=== PATIENT | male | born 1960 | race Caucasian/White ===

== ENCOUNTER 2023-11-27 15:55 | Inpatient (IN) | payer BC, SELFPAY ==
[2023-11-27] VITALS (9 sets, daily range): BP systolic 132–157; BP diastolic 77–126; BMI 30.4; BMI 28.4; BMI 28.3
[2023-11-27 14:10] LABS: % Basophils 0.6 % (0-2); % Eosinophils 0.6 % (0-6); % Immature Granulocytes 0.3 % (0-0.5); % Lymphocytes 20.6 % (20.5-51.1); % Monocytes 6.3 % (1.7-9.3); % Neutrophils 71.6 % (42.2-75.2); Absolute Basophils 0.1 10^3/uL (0-0.2); Absolute Eosinophils 0.1 10^3/uL (0-0.7); Absolute Lymphocytes 2.4 10^3/uL (1.2-3.4); Absolute Monocytes 0.7 10^3/uL (0.1-0.6); Absolute Neutrophils 8.2 10^3/uL (1.4-6.5); Hematocrit 44.6 % (39.0-52.0); Hemoglobin 15.2 g/dL (13.0-18.0); Mean Corp Hgb Conc. 34.1 g/dL (33.0-37.0); Mean Corpuscular Hgb 28.3 pg (27.0-31.0); Mean Corpuscular Volume 82.9 fL (80.0-94.0); Mean Platelet Volume 11.8 fL (7.4-10.4); Nucleated Red Blood Cells % 0 % (-); Platelet Count 251 10^3/uL (130-400); Red Blood Cell Count 5.38 10^6/uL (4.70-6.10); Red Cell Dist. Width 12.4 % (11.5-14.5); White Blood Cell Count 11.5 10^3/uL (4.8-10.8)
[2023-11-27 14:23] LABS: ALT (SGPT) 47 U/L (0-50); AST (SGOT) 39 U/L (17-59); Albumin 4.8 g/dl (3.5-5.0); Alkaline Phosphatase 55 U/L (38-126); Blood Urea Nitrogen 23 mg/dl (9-20); Carbon Dioxide 27 mmol/L (22-30); Chloride 103 mmol/L (98-107); Glucose 122 mg/dl (70-99); Potassium 4.6 mmol/L (3.5-5.1); Sodium 135 mmol/L (135-145); Total Bilirubin 1.8 mg/dl (0.2-1.3); Total Protein 7.3 g/dl (6.3-8.2); eGFR > 60.00
--- NOTE | 2023-11-27 15:15 | ED.GENMED ---
History of Present Illness
General
Chief Complaint: Cardiac Symptoms
Source: patient
Exam Limitations: none
Time Seen by Provider: 11/27/23 14:55
Travel History
Have you had any contact with someone who has COVID-19?: No
Do you have any symptoms of coronavirus? Fever > 100 degrees, chills, cough, shortness of breath, sore throat, loss of taste or smell, muscle aches, or headache?: No
History of Present Illness
History of Present Illness:
See MDM
Past History
Past History
ED Past Medical History: Arrthythmia (A fibrillation) and HTN
ED Past Surgical History: Other (RADHA with cardioversion)
Social History
Tobacco: Former smoker
Alcohol: Occasional
Personal:
Living: other (Significant other)
Employment: Employed
Family History
Family History: Other (Father with an VT and cerebral hemorrhage)
Phy Exam
Physical Exam
Physical Exam:
See MDM
Course
Orders/Labs/Results
Orders:
Orders
11/27/23 13:52
EKG [Electrocardiogram (*1)] Urgent
Reason for Study: Atrial Fibrillation
EKG- Treatment ONCE
11/27/23 14:03
Complete Blood Count/With Diff Urgent
Comprehensive Metabolic Panel Urgent
Troponin I Urgent
11/27/23 15:09
Aspirin Chewable [Low Strength Aspirin] 243 mg PO NOW STA
11/27/23 15:10
Heparin 4,000 units IV NOW STA
Pharmacy Request to Place See Dose Instructions PO NOW STA
Discontinue all Active Warfarin orders?: Yes
11/27/23 15:11
PTT Urgent
Comment: Obtain baseline before beginning heparin infusion if not already collected
Nursing to Place Non Medication Order As Directed
Physician Order: PTT 6 hours after initial start of Heparin infusion
11/27/23 15:13
Consult Cardiology [CARDIOLOGY CONSULT] Routine
Consulting Provider: Burke Arnold
Was physician already notified: Yes
11/27/23 15:15
Heparin 71269 Units/250 ml 25,000 units in 250 ml IV PER PROTOCOL
Weight to be used for heparin protocol in kilograms (kg):: 76.5
Protocol:: Cardiac Tx/Acute Coronary
PTT Goal Range to be used:: PTT 73 to 111 seconds
Order type:: Initial
INITIAL Infusion Dose (UNITS/KG/hr) & then follow protocol:: 15 units/kg/hr
Infusion Dose in UNITS/hr & then follow protocol (UNITS/hr):: 1,150
INFUSION RATE in mL/hr & then follow protocol (mL/hr):: 11.5
PTT less than or equal to 64 seconds:: Increase rate by 200 units/hr (+ 2 mL/hr)
PTT 64.1 to 72.9 seconds:: Increase rate by 100 units/hr (+ 1 mL/hr)
PTT 73 to 111 seconds:: Target Range. No change in rate.
PTT 111.1 to 130.9 seconds:: Decrease rate by 100 units/hr (- 1 mL/hr)
PTT 131 to 199.9 seconds:: HOLD for 1 hr. Then decrease rate by 200 units/hr (- 2 mL/hr)
PTT greater than or equal to 200 seconds:: HOLD for 2 hrs & Notify Provider. Then decrease by 200 units/hr (-
2 mL/hr)
Lab follow-up:: Each change, PTT q6h until 2 consecutive are therapeutic. Then PTT
daily.
11/27/23 16:[address] See Dose Instructions IV DIRECTED
Abnormal Lab Results
11/27/23
14:03
WBC 11.5 H 10^3/uL
(4.8-10.8)
MPV 11.8 H fL
(7.4-10.4)
Absolute Neuts (auto) 8.2 H 10^3/uL
(1.4-6.5)
Absolute Monos (auto) 0.7 H 10^3/uL
(0.1-0.6)
BUN 23 H mg/dl
(9-20)
Glucose 122 H mg/dl
(70-99)
Total Bilirubin 1.8 H mg/dl
(0.2-1.3)
Troponin I 0.040 H* ng/ml
11/27/23 14:03
11/27/23 14:03
Vital Signs
Initial and Last Documented VS:
Initial Vital Signs
Temp Pulse Resp BP Pulse Ox
98.1 F 74 20 146/89 95
11/27/23 13:56 11/27/23 13:56 11/27/23 13:56 11/27/23 13:56 11/27/23 13:56
Last Documented Vital Signs
Temp Pulse Resp BP Pulse Ox
97.5 F 74 16 157/126 98
11/27/23 15:04 11/27/23 15:04 11/27/23 15:04 11/27/23 15:04 11/27/23 15:04
MDM/Problems Addressed
Differential Diagnosis Includes:
HPI and MDM Narrative:
63-year-old male presenting with exertional dyspnea. Patient was playing basketball today and felt winded and felt off. Patient has a history of paroxysmal A-fib. He was unsure if this was A-fib or not. He follows with cardiology Dr. Winston. He
took his baby aspirin earlier today. Blood work was performed in triage. His back to the emergency department room. At this time, his blood work came back and his troponin is elevated at 0.04. EKG is nonischemic. Patient remains symptom-free at
rest
Case discussed with cardiology. Will start heparin drip and admit
Physical exam
General: Well appearing and non-toxic
HEENT: protecting airway
Neck: appears supple
CV: No evidence of cyanosis. Regular rate and rhythm
Resp: No accessory muscle use
Abd: Non-distended
Extremities: No deformities
Neuro: alert
Psych: Normal affect
Skin: Intact
Problems Addressed including Acute and Chronic Conditions affecting care:
1. Exertional dyspnea
Acuity: acute
Prognosis: unstable
Details: Given the elevated troponin, there is concern for ACS equivalent. Patient is high risk with prior history of smoking, high cholesterol and family history of heart disease.
Updates
Given the exertional dyspnea and the elevated troponin, will start heparin drip with concern for acute coronary syndrome
Differential Diagnosis (but not limited to):
Testing considered:
Drug therapy (if applicable): OTC meds, please see d/c instruction regarding Rx drugs
Amount and/or Complexity of Data Reviewed
Clinical info obtained from: Patient
External data reviewed: N/A
Labs I independently reviewed (but not limited to): Elevated troponin
Radiology: N/A
Pulse Ox: not hypoxic
EKG independently reviewed: Sinus rhythm, normal axis, no STEMI
Manager Mission: Sinus rhythm
Critical Care: The high probability of a clinically significant, sudden or life threatening deterioration of the cardiovascular system(s) required my full and direct attention, intervention and personal management. The aggregate critical care time
was 31 minutes. This time is in addition to time spent performing reported procedures but includes the following:
[x] Data Review and interpretation
[x] Patient assessment and monitoring of vital signs
[x] Documentation
[x] Medication orders and management
Risk of Complication:
Social Determinants of health: Good social support
Discussed with other providers: cardiology, hospitalist
Escalation of Care includes Admit/Obs: Given the concern for ACS, heparin drip started and will admit
Occasional wrong word or 'sound a like' substitutions may have occurred due to the inherent limitations of voice recognition software. Read the chart carefully and recognize, using context, where substitutions have occurred.
*Critical Care Note
Total Time (30-74mins, 75-104mins- exclusive of procedures): 31 min
ED Attending Note
-
Portions of this chart may have been created with voice recognition software.� Occasional wrong word or��sound alike� substitutions may have occurred due to the inherent limitations of voice recognition software.
Discharge Plan
Departure
Patient Disposition: Admit
Date of Disposition: 11/27/23
Time of Disposition: 15:16
Admit to: Telemetry
Presentation/result/management discussed w/ accepting MD/DO: Hospitalist
Discharge Problem:
ACS (acute coronary syndrome)
Prescriptions:
No Action
ascorbate calcium (vitamin C) [Liliam-C] 500 MG tablet
500 mg PO DAILY
omega-3 fatty acids-fish oil 1 EACH capsule
2 ea PO DAILY
Interventions
Interventions:
*Risk Screen - Suicide Last Done: 11/27/23 14:59
*General Assessment Last Done: 11/27/23 14:59
*Neglect/Abuse Screening Last Done: 11/27/23 14:59
ED- Fall Risk Assessment Last Done: 11/27/23 14:59
*ED COVID-19 Vaccine History Last Done: 11/27/23 13:56
ED- Pulmonary Assessment Last Done: 11/27/23 14:59
ED- Cardiac Assessment Last Done: 11/27/23 14:59
Discharge Date and Time
Print Language: ITALIAN
--- NOTE | 2023-11-27 15:57 | HPS.HSE ---
Family Physician
-
Family Physician: Zi Bains
Chief Complaint
-
Dyspnea on exertion
History of Present Illness
This is a 63-year-old male who has a past medical history significant for hyperlipidemia, hypertension, proximal atrial fibrillation not on anticoagulation presenting with dyspnea on exertion during exercise and persistent elevated heart rate.
Patient reports being in usual state of health up until playing basketball today. He felt particularly dyspneic running up and down the basketball court.
Afterwards patient continued to have some dyspnea and felt some palpitations. He thought he was in atrial fibrillation and checked his heart rate via the monitor which showed that he was not in atrial fibrillation but his heart rate was elevated
compared to his baseline. He will out of breath doing his chores such as mowing the lawn. He denies any nausea vomiting or diaphoresis. He denied feeling dizzy or lightheaded.
Patient was previously evaluated for CAD in July with a stress test that was negative for motion abnormalities. 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 He denies
prior history of exertional chest pain. He does have a history with father with NM in his 50s.
On arrival in the ED the patient is a 3150 systolic, he was otherwise hemodynamically stable and in no acute distress and free of chest pain. ECG showed normal sinus and it was unchanged from prior history�troponin 0.04. CBC was unremarkable.
Chemistries were all within normal limits. Case discussed with cardiology per ED recommending tx for ACS.
Medical History
Past Medical History
Past Medical History: Reports Arrhythmia (paroxysmal atrial fibrillation), HTN and Hypercholesterolemia
Past Surgical History: Reports None
Social History
Tobacco: Non-smoker
Alcohol: Occasional
Drug: None
Personal:
Living: With Family
Employment: Employed
Family History
Family History: CAD (father with NM in his 50s)
Allergies / Home Medications
Allergies reflects when Allergies were last updated in [employer].
Home Medications with original date entered in [facility]
Allergy/Medication List:
Allergies
Allergy/AdvReac Type Severity Reaction Status Date / Time
No Known Allergies Allergy Verified 11/27/23 13:57
Home Medications
Bladder Health Supplement 3 cap PO DAILY 11/27/23
Nettle Root Extract Liquid 1 dose PO DAILY 11/27/23
aspirin 81 mg tablet,delayed release 81 mg PO DAILY 11/27/23
coenzyme Q10 100 mg capsule (CoQ-10) 100 mg PO DAILY 11/27/23
hydrochlorothiazide 25 mg tablet 25 mg PO DAILY 11/27/23
polyvinyl alcohol 1.4 % eye drops 1 drp BOTH EYES DAILYPRN PRN dry eyes 11/27/23
rosuvastatin 10 mg tablet 10 mg PO HS 11/27/23
sildenafil 100 mg tablet 100 mg PO DAILY PRN ED 11/27/23
valsartan 320 mg tablet 320 mg PO DAILY 11/27/23
Review of Systems
-
History Source: Patient
Constitutional: Reports No Symptoms
EENT: Reports No Symptoms
Respiratory: Reports No Symptoms
Cardiac: Reports Chest Pain (dyspnea on exertion)
Abdomen/GI: Reports No Symptoms
: Reports No Symptoms
Musculoskeletal: Reports No Symptoms
Skin: Reports No Symptoms
Neurological: Reports No Symptoms
Endocrine: Reports No Symptoms
Hematologic/Lymphatic: Reports No Symptoms
Psych: Reports No Symptoms
Physical Exam
Vital Signs
Vital Signs
Temp Pulse Resp BP Pulse Ox
97.5 F 74 16 157/126 98
11/27/23 15:04 11/27/23 15:04 11/27/23 15:04 11/27/23 15:04 11/27/23 15:04
Physical Exam
General: Well Developed, Well Nourished, No Apparent Distress, Comfortable and Conversant
HEENT: NormoCephalic, Anicteric, Moist mucous membranes, Atraumatic and PERRLA
Respiratory: Clear
Cardiac: S1/S2 and Regular Rhythm
Breast: Deferred by me
GI: Soft, Non Tender, Non Distended and Normal Bowel Sounds
Rectal: Deferred by Provider
Genito-urinary: Deferred by me
Musculoskeletal: No Clubbing, No Cyanosis and No Edema
Skin: Warm and Dry
Neuro: AO x 3
Hematologic/Lymphatic: No Lymphadenopathy
Psych: Calm
Laboratory Results
-
11/27/23 14:03
11/27/23 14:03
Laboratory Results
Total Bilirubin 1.8 mg/dl (0.2-1.3) H 11/27/23 14:03
AST 39 U/L (17-59) 11/27/23 14:03
ALT 47 U/L (0-50) 11/27/23 14:
Alkaline Phosphatase 55 U/L (38-126) 11/27/23 14:03
Troponin I 0.040 ng/ml H* 11/27/23 14:03
Data Reviewed
-
Medical Tests (Nuc Med, Echo, EKG etc): Image Personally Visualized and interpreted
Lab Data: Labs Reviewed by me
Old Records: Reviewed
Impression/Plan
-
IMPRESSION:
PLAN:
Chest pain - RUSH, history of possible ischemia on excercise ecg, family hx of ecg, elevated troponin suggests cardiac ischemia. Oxygenation is at baseline and has no pulmonary symptoms. Normal sinus ryhthm in the 60s. Will admit and treat for
ACS. No h/o drug use.
- admit to telemetry
- aspirin 243 given in ED, continue 81 daily
- start heparin gtt, continue rosuvastin
- plan for possible cath in am, npo after midnight
- lipid panel and a1c
pAfib - Currently rate controlled. Was on aspirin 81 and not anticoagulated.
- on heparin for acs now
- continue aspirin
- rate spontanously controlled
HTN
- continue valsartan and hctz
DVT - on heparin gtt
Code status - Full Code
[2023-11-27] MEDS: LOW STRENGTH ASPIRIN 243 MG PO (15:58)
[2023-11-27] MEDS: HEPARIN 4000 UNITS IV (15:58)
[2023-11-27] MEDS: HEPARIN 25000 UNITS/250 ML IV (16:04)
[2023-11-27 16:19] LABS: APTT 27.4 Sec (23.4-35.0)
--- NOTE | 2023-11-27 17:33 | W.PN.CD ---
Today's Communication / Plan
-
.
Impression / Plan
-
Impression:63M with paroxysmal AF, dyslipidemia, HTN, CAC 426 admitted with exertional dyspnea & chest pain. EKG unremarkable (maybe subtle ST depressions laterally) and first troponin 0.04. Symptoms resolved with rest and haven't recurred
Plan:
CP/Dyspnea - he thought it was due to AF/RVR, although does agree that very mild chest pain is new. Also, no AF/RVR when he got home. Suspect this is ACS or AF that resolved spontaneously.
- treat as ACS -> ASA/UFH and statin. Serial troponins and EKG. I will leave NPO for possible LHC in AM
- Possible AF -> telemetry
PAF
- Rate: Fine in NSR
- Rhythm: no drugs
- Oral Anticoagulation: 1 for HTN (2 if you count CAC as vascular disease). No AC yet
Hypertension -meds
Dyslipidemia - statin and check lipid panel
Nephrolithiasis
Subjective: Dictated
Data
CAC 2022: TOTAL CORONARY ARTERY CALCIUM AGATSTON SCORE: 426.24. LEFT MAIN: 71.11 LAD: 214.77 LEFT CIRCUMFLEX: 0 RCA: 140.36
SACHA Jul 2023: 11:[address] depressions inferiorly, resolved 3 minutes into recovery BUT no echo changes
Physical Exam
Vital Signs/Labs
Vital Signs
Temp Pulse Resp BP Pulse Ox
36.4 C 58 16 136/88 98
11/27/23 15:04 11/27/23 16:30 11/27/23 16:30 11/27/23 16:00 11/27/23 15:04
11/26/23 11/27/23 11/28/23
06:59 06:59 06:59
Actual Weight 200 lb
11/27/23 14:03
11/27/23 14:03
APTT 27.4 Sec (23.4-35.0) 11/27/23 15:57
LAB Results
11/27/23
14:03
Troponin I 0.040 H*
Data Reviewed
-
Date of Service: November 27, 2023
[2023-11-27 18:26] LABS: Troponin I 0.049 ng/ml
[2023-11-27 21:23] LABS: Troponin I 0.052 ng/ml
[2023-11-27] MEDS: CRESTOR 10 MG PO (21:47)
[2023-11-28] VITALS (10 sets, daily range): BP systolic 129–145; BP diastolic 67–88
[2023-11-28 00:18] LABS: APTT 103.5 Sec (23.4-35.0); Troponin I 0.052 ng/ml
--- NOTE | 2023-11-28 06:30 | W.PN.HOSP.TC ---
Today's Communication/Plan
-
Discharge
Assessment / Plan
Assessment / Plan
Physical Exam
General: Well Developed, Well Nourished, No Apparent Distress, Comfortable and Conversant
HEENT: NormoCephalic, Anicteric, Moist mucous membranes, Atraumatic and PERRLA
Respiratory: Clear
Cardiac: S1/S2 and Regular Rhythm
GI: Soft, Non Tender, Non Distended and Normal Bowel Sounds
Musculoskeletal: No Clubbing, No Cyanosis and No Edema, Right wrist dressing clean dry intact
Skin: Warm and Dry
Neuro: AO x 3
Psych: Calm
63M HTN HLD pAfib here for chest pain exertional dyspnea concerning for ACS
Chest pain - RUSH, history of possible ischemia on excercise ecg, family hx of ecg, elevated troponin suggests cardiac ischemia. Oxygenation is at baseline and has no pulmonary symptoms. Normal sinus ryhthm in the 60s. Will Admitted and treat for
possible ACS. No h/o drug use.
- aspirin 243 given in ED, continue 81 daily
- empirically on heparin gtt prior to cath
-Troponin peak 0.052
-ECHO appreciated EF 65-70% no significant change from prior ECHO
Cardio eval appreciated
-Cath noted endothelial dysfunction/microvascular angina, non-obstructive coronary artery disease,
-limited weightbearing right wrist one week
-increased home statin
-HCTZ discontinued in favor of Verapamil
pAfib - Rate controlled
- continue aspirin
- CHADS2-Vasc 1 d/t htn no role anticoagulation at this time.
HTN
- continue valsartan
-HCTZ discontinued in favor of Verapamil as above
Code status - Full Code
Medically stable for discharge home with outpatient follow up recommendations.
Discussed with Cardiology, Patient and his .
Total Time Preparing Discharge ___50____ minutes including examination of the patient, summary of the hospital stay, instructions for continuing care to all relevant caregivers; and preparation of discharge records, prescriptions, and referral
forms if necessary.
Anticipated Discharge: Today
Subjective/Interval History
-
Date of Service: November 28, 2023
Seen and examined at bedside s/p cath. Symptoms (chest pain shortness of breath) resolved. Reports overall feeling well. Simon present during evaluation. Eager to go home.
Objective Data
-
Labs:
Laboratory Results
11/27/23 11/28/23 11/28/23
23:33 06:00 06:38
WBC Pending
Hgb Pending
Hct Pending
Plt Count Pending
APTT 103.5 H Pending
Sodium Pending
Potassium Pending
Chloride Pending
Carbon Dioxide Pending
BUN Pending
Creatinine Pending
Glucose Pending
Calcium Pending
Vital Signs:
Vital Signs
Temp Pulse Resp BP Pulse Ox
97.5 F 50 16 140/81 97
11/28/23 03:30 11/28/23 03:30 11/28/23 03:30 11/28/23 03:30 11/28/23 03:30
I&O
11/26/23 11/27/23 11/28/23
06:59 06:59 06:59
Intake Total 480 / 480
Balance 480 / 480
[2023-11-28 07:21] LABS: Hematocrit 47.1 % (39.0-52.0); Hemoglobin 15.4 g/dL (13.0-18.0); Mean Corp Hgb Conc. 32.7 g/dL (33.0-37.0); Mean Corpuscular Hgb 28.5 pg (27.0-31.0); Mean Corpuscular Volume 87.1 fL (80.0-94.0); Mean Platelet Volume 11.7 fL (7.4-10.4); Platelet Count 216 10^3/uL (130-400); Red Blood Cell Count 5.41 10^6/uL (4.70-6.10); Red Cell Dist. Width 12.6 % (11.5-14.5); White Blood Cell Count 8.2 10^3/uL (4.8-10.8)
[2023-11-28 07:46] LABS: APTT 108.3 Sec (23.4-35.0)
--- NOTE | 2023-11-28 07:48 | W.PN.CD ---
Today's Communication / Plan
-
Increase rosuvastatin to 20 mg daily.
LHC today.
Impression / Plan
-
Impression/Plan:63M with paroxysmal AF, dyslipidemia, HTN, CAC 426 admitted with exertional dyspnea & chest pain, nonspecific EKG changes unremarkable (maybe subtle ST depressions laterally) and first troponin 0.04. Symptoms resolved with rest and
haven't recurred
#CP/Dyspnea
-Acute, resolved.
-Troponin trend = 0.040 --> 0.049 --> 0.052 --> 0.052.
-Elevated calcium score implies the presence of ASCVD.
-Maintain aspirin, heparin. Increase rosuvastatin to 20 mg daily.
-Coronary angiography today.
#PAF
-Currently in NSR.
-Bradycardia prevents the use of beta rah/CCA.
-CHADS2-Vasc = 1 (HTN).
-No role for vermin exterminator therapeutic anticoagulation at this time. Currently on heparin gtt for possible ACS.
#Hypertension
-Chronic, elevated.
-Has not received home medications in light of pending [facility].
#Dyslipidemia
-Chronic, stable.
-Increase rosuvastatin to 20 mg daily.
-Goal LDL < 55.
#Nephrolithiasis
Subjective:
No acute events.
No subjective complaints.
Data:
Stress Echo, 07/29/2023:
CONCLUSIONS
Good exercise capacity at 11 minutes (12 METS). No chest pain. Stress EKG is
positive for ischemia. 1.5 mm horizontal to downsloping ST depression in leads
II,III,AVF; resolved 2-3 minutes into recovery. DTS 3.5.
No echocardiographic evidence of myocardial ischemia.
Low/intermediate risk stress test.
CAC, 01/14/2023:
TOTAL CORONARY ARTERY CALCIUM AGATSTON SCORE: 426.24. LEFT MAIN: 71.11 LAD: 214.77 LEFT CIRCUMFLEX: 0 RCA: 140.36
Physical Exam
Vital Signs/Labs
Vital Signs
Temp Pulse Resp BP Pulse Ox
36.4 C 50 16 140/81 97
11/28/23 03:30 11/28/23 03:30 11/28/23 03:30 11/28/23 03:30 11/28/23 03:30
11/26/23 11/27/23 11/28/23
11:59 11:59 11:59
Actual Weight 89.528 kg
11/28/23 07:06
APTT 108.3 Sec (23.4-35.0) H 11/28/23 07:06
LAB Results
11/27/23 11/27/23 11/27/23
14:03 17:49 20:48
Troponin I 0.040 H* 0.049 H* 0.052 H*
11/27/23
23:33
Troponin I 0.052 H*
Physical Exam
Constitutional: No acute distress and Comfortable
EENT: Anicteric and Moist mucous membranes
Cardiovascular: Rhythm & rate is regular, Pedal edema is absent, JVD pressure is normal, S1S2 is normal and Murmur/rub/gallop absent
Respiratory: Respiratory effort normal, Lungs clear to auscul., Wheeze Absent, Crackles Absent and Rhonchi Absent
GI: Soft, Distention absent, Flat, Non tender and Normal bowel sounds
Neuro/Psych: AO x 3
Data Reviewed
-
Date of Service: November 28, 2023
Medical Decision Making: Reviewed Test Results, Independent Historian Assessment, Test Interpretation and Review of Case with other Provider
EKG: Tracing Personally Visualized and interpreted and Report Reviewed by me
Echo: Tracing Personally Visualized and interpreted and Report Reviewed by me
X-Ray/CT/US/MRI/NUC/PET: Report Reviewed by me
Labs: Labs Reviewed by me
[2023-11-28 08:43] LABS: Blood Urea Nitrogen 18 mg/dl (9-20); Calcium 9.6 mg/dl (8.4-10.2); Carbon Dioxide 29 mmol/L (22-30); Chloride 99 mmol/L (98-107); Estimated Creatinine Clearance 87 ml/min; Glucose 104 mg/dl (70-99); HDL Cholesterol 89 mg/dl; LDL Cholesterol, Calculated 39 mg/dl; Potassium 4.4 mmol/L (3.5-5.1); Sodium 137 mmol/L (135-145); Total Cholesterol 139 mg/dl (50-199); Triglyceride 57 mg/dl (10-149); Very Low Density Lipoprotein 11 mg/dl (0-30); eGFR > 60.00
[2023-11-28 09:14] LABS: ACT-LR - POC 379 Seconds (116-155)
--- NOTE | 2023-11-28 09:36 | ITS.CL.CATH ---
Video Software Engineer - Catheterization
Cardiac Catheterization
Procedure Report:
CARDIAC CATHETERIZATION REPORT
Date of Procedure: 11/28/2023
Referring: Burke Arnold M.D.
INDICATION: Chest discomfort, abnormal troponin.
PROCEDURE:
1. Left heart catheterization.
2. Coronary angiography
3. IFR of the diagonal.
ACCESS:
6 Cypriot right radial artery.
CATHETERS:
1. 5 Cypriot JR4.
2. 5 Cypriot JL 3.5.
3. 6 Cypriot EBU 3.5 guiding catheter.
HEMODYNAMIC DATA
Weight (kg): 89.4
AO (s/d/x, mmHg): 135/83/106
LV (s/x mmHg): 135/11
LEFT VENTRICULOGRAPHY: Not performed.
CORONARY ANGIOGRAPHY
Dominance: Right.
Left Main: Normal size, trifurcating vessel. There is no coronary artery disease.
LAD: Large size vessel giving rise to 2 significant diagonals before wrapping around the apex to supply the inferior septum. There is a 10-20% lesion in the mid vessel. There is a 70% lesion in the mid D1. The distal/apical LAD is severely
tortuous. There is generalized slow flow in the LAD system.
Ramus: Small size vessel that turns inward to provide the master septal.
Circumflex: Normal size, nondominant vessel giving rise to 1 large obtuse marginal. There is no coronary artery disease. There is moderate to severe tortuosity in the marginal system.
RCA: Large size, dominant vessel. There is a significant posterolateral arcade. There is an area of calcification in the distal vessel, immediately after the crux associated with a luminal irregularity but no definitive stenosis.
INTERVENTION(S)
1. Successful IFR of the 70% mid diagonal lesion, demonstrating nonocclusive disease (IFR = 0.93).
Narrative:
The decision was made to perform physiologic testing. The diagnostic catheter was removed over a wire and exchanged for a(n) 6 Cypriot EBU 3.5 guiding catheter. The guiding catheter was advanced into the ascending aorta and seated in the left main
coronary artery. Additional heparin was given to obtain an ACT greater than 250 seconds. An iFR wire was zeroed outside of the body, then inserted into the guiding sheath. The wire was advanced and the transducer was normalized just outside of the
guiding catheter tip. The wire was advanced into the distal first diagonal. Three iFR measurements were taken. The lesion was determined to be nonocclusive (0.93).
Closure Device: Vascular band.
Radiation (mGy): 464.66
DAP (cm2.Gy): 28.5781
Fluoroscopy time (minutes): 4.6
Sedation time (minutes): 38
CONCLUSIONS
1. Right dominant circulation with a 10 to 20% mid LAD lesion, luminal irregularities with focal calcification in the distal RCA and a nonocclusive, 70% lesion in the mid first diagonal (IFR = 0.93).
2. Notable slow flow within the LAD diagonal system without obstructive epicardial disease. Suggestive of endothelial dysfunction/microvascular angina.
3. Normal filling pressures (LVEDP = 11 mmHg at 89.4 kg).
RECOMMENDATIONS:
1. Expectant management after cardiac catheterization via right radial approach.
2. Limited weight bearing on the right wrist for one week.
3. Primary prevention with high-dose, high potency statin.
4. Treatment of endothelial dysfunction with appropriate medical therapy. The patient was previously intolerant of dihydropyridine calcium channel blockers due to lower extremity swelling. Discontinue hydrochlorothiazide in favor of verapamil.
5. Stable for outpatient follow-up.
Copy to: Burke Arnold M.D., Vincent Velásquez M.D.
Fredy Frank DO, FACC, FACP
[2023-11-28 09:38] LABS: Troponin I 0.049 ng/ml
[2023-11-28] MEDS: ORETIC 25 MG PO (09:49)
[2023-11-28] MEDS: DIOVAN 320 MG PO (09:49)
[2023-11-28] MEDS: LOW STRENGTH ASPIRIN 81 MG PO (09:50)
--- NOTE | 2023-11-28 16:24 | W.DCSUMMARY ---
Discharge Summary
Discharge Data
Date of Admission: 11/27/23
Date of Discharge: 11/28/23
-
Pending Results: No
Discharge Plan
-
Patient Disposition: Home (Routine Discharge)
Discharge Diagnosis/Procedures: Cardiac catheterization, Microvascular Angina, paroxysmal atrial fibrillation, hypertension, hyperlipidemia, Prediabetes
Condition: Good
Diet: Low Cholesterol and 2 Gram Sodium
Activity: As tolerated
Additional Activity: Limited weight bearing right wrist for 1 week
Driving Restrictions: As prior to admission
Bathing Restrictions: None
Activity Restrictions/Additional Instructions:
Please follow up with primary care provider in 1 week of discharge and keep your appointment with Cardiology.
Hydrochlorothiazide has been discontinued in favor of Verapamil for blood pressure control and treatment microvascular angina.
Home Rosuvastatin dose has been increased for better control hyperlipidemia and risk reduction acute coronary syndrome.
Please take medications as prescribed/recommended and follow up with primary care provider and/or other healthcare provider involved in your care for refills and/or further adjustments to your medication regimen as necessary.
Stand Alone Forms: DC Instructions- Cath/EP Lab
Referrals:
Jacey Oliva NP [Specified Professional Personl] - 12/13/23 1:20 pm (Cardiology followup appointment)
Zi Bains DO [Family Provider] - in one week
Prescriptions:
New
rosuvastatin 20 mg tablet
20 mg PO HS 30 Days Qty: 30 0RF
verapamil 120 mg capsule,ext rel. pellets 24 hr
120 mg PO DAILY 30 Days Qty: 30 0RF
Continued
polyvinyl alcohol 1.4 % Drops
1 drp BOTH EYES DAILYPRN PRN (Reason: dry eyes)
aspirin 81 mg Tablet,Delayed Release (Dr/Ec)
81 mg PO DAILY
sildenafil 100 mg Tablet
100 mg PO DAILY PRN (Reason: ED)
valsartan 320 mg Tablet
320 mg PO DAILY
coenzyme Q10 [CoQ-10] 100 mg Capsule
100 mg PO DAILY
Bladder Health Supplement
3 cap PO DAILY
Nettle Root Extract Liquid
1 dose PO DAILY
Patient Comments:
11/27/2023, pt. states to place between 0.2 ml - 0.3 ml of this supplement in water and takes it daily.
Discontinued
hydrochlorothiazide 25 mg Tablet
25 mg PO DAILY
rosuvastatin 10 mg Tablet
10 mg PO HS
Discharge Orders:
Discharge Patient (As Directed); Ordered 11/28/23
Ordered By: Clemente Cedeno
Discharge Date and Time
Print Language: AMERICAN
--- NOTE | 2023-11-28 16:41 | CM ---
clinic business manager reviewed patient's chart and met with patient and patient lives with his spouse is independent with adl's and ambulation, patient lives in a multilevel home, no dme, patient drives, patient has a prescription plan and uses [facility].
PCP: Dr. Bains
Plan; Home when stable, no needs.
== END 2023-11-28 16:59 | disposition home or self-care (01) | DRG 287 ==
LOC: 4 WEST ACU 15:55
PROVIDERS: Emergency Medicine; Internal Medicine Cardiovascular Disease; ADMITTING PHYSICIAN Internal Medicine; ATTENDING PHYSICIAN Internal Medicine; CONSULT PHYSICIAN Internal Medicine Cardiovascular Disease; EMERGENCY PHYSICIAN Student in an Organized Health Care Education/Training Program; FAMILY PHYSICIAN Family Medicine
PROC: 4A033BC Measurement of Arterial Pressure, Coronary, Percutaneous Approach (ICD-10-PCS; 2023-11-28)
PROC: B2111ZZ Fluoroscopy of Multiple Coronary Arteries using Low Osmolar Contrast (ICD-10-PCS; 2023-11-28)
PROC: 4A023N7 Measurement of Cardiac Sampling and Pressure, Left Heart, Percutaneous Approach (ICD-10-PCS; 2023-11-28)
DX: I25.118 Atherosclerotic heart disease of native coronary artery with other forms of angina pectoris (principal); I48.0 Paroxysmal atrial fibrillation; I10 Essential (primary) hypertension; E78.00 Pure hypercholesterolemia, unspecified; Z87.891 Personal history of nicotine dependence; Z82.49 Family history of ischemic heart disease and other diseases of the circulatory system; Z87.442 Personal history of urinary calculi
CPT/HCPCS: 80048; 80053; 80061; 83036; 84484; 85025; 85027; 85347; 85730; 93005; 93306; 93458; 93571; 99291; C1769; C1887; C1894; Q9967